=== PATIENT | male | born 1940 | race Hispanic/Latino ===

== ENCOUNTER → 2018-06-19 | Day surgery (SDC) | payer MEDICARE ==
[2016-03-30 16:34] VITALS: BMI 36.1
[~2018-06-19] MED LIST: Propofol 10 mg/ml Inj (20 ML) ONE; Sodium Chloride 0.9% 1,000 ML IV SCH
[2018-06-19 11:57] VITALS: RESP 16
[2018-06-19 12:53] VITALS: BP 165/77; PULSE 59; TEMP 97.7; O2SAT 99
== END | disposition home or self-care (01) ==
LOC: ENDO 09:26
PROVIDERS: ATTEND Internal Medicine Gastroenterology
DX: K25.9 Gastric ulcer, unspecified as acute or chronic, without hemorrhage or perforation (principal); K31.4 Gastric diverticulum; K29.70 Gastritis, unspecified, without bleeding; K21.9 Gastro-esophageal reflux disease without esophagitis
CPT/HCPCS: 43239; 88305; 88342; J2704; J7030; J7040